=== PATIENT | female | born 1960 | race Caucasian/White ===

== ENCOUNTER 2017-08-11 13:42 | Observation (INO) | payer BC ==
[2017-08-11] VITALS (7 sets, daily range): BP systolic 113–134; BP diastolic 72–80; PULSE 72–121; RESP 16; TEMP 98.1; O2SAT 95–98
[2017-08-11] MEDS ORDERED: BUPR100CR PO (14:46)
[2017-08-11 16:14] LABS: AUTOMATED NEUTROPHIL # 6.8 TH/MM3 (1.8-7.7); BASOPHIL % 0.4 % (0.0-2.0); EOSINOPHIL % 0.1 % (0.0-4.0); HEMATOCRIT 43.2 % (35.0-46.0); HEMOGLOBIN 14.6 GM/DL (11.6-15.3); LYMPH % 7.8 % (9.0-44.0); LYMPHOCYTE # 0.6 TH/MM3 (1.0-4.8); MEAN CELL VOLUME 89.3 FL (80.0-100.0); MEAN CORPUSCULAR HEMOGLOBIN 30.2 PG (27.0-34.0); MEAN CORPUSCULAR HGB CONC 33.9 % (32.0-36.0); MEAN PLATELET VOLUME 10.3 FL (7.0-11.0); MONO % 2.9 % (0.0-8.0); MONOCYTE # 0.2 TH/MM3 (0-0.9); NEUT % 88.8 % (16.0-70.0); PLATELET COUNT 78 TH/MM3 (150-450); RED BLOOD COUNT 4.84 MIL/MM3 (4.00-5.30); WHITE BLOOD COUNT 7.6 TH/MM3 (4.0-11.0)
[2017-08-11] MEDS ORDERED: SODIUM CHLORID 0.9% 500 ML INJ 500 ML IV ONE ×2 (16:15→18:00)
[2017-08-11] MEDS ORDERED: ONDANSETRON HCL 4 MG/2 ML VIAL IV PUSH ONE (16:15)
--- NOTE | 2017-08-11 16:26 | PD ---
HPI Chief Complaint: GI Complaint Time Seen by Provider: 16:05 Travel History International Travel<30 days: No Contact w/Intl Traveler<30days: No Traveled to known affect area: No History of Present Illness HPI Patient states that ever since she stopped taking her depression medication she has been having nausea and vomiting for the past 4 or so days. Patient denies any associated factors such as fever, rash, headache, chest pain, abdominal pain , back pain, diarrhea. No alleviating factors, aggravated by eating or drinking anything. Allergy to penicillins Past medical and surgical history significant for tonsillectomy appendectomy hysterectomy and depression PFS Past Medical History Depression: Yes Tetanus Vaccination: Unknown Influenza Vaccination: No ?: Not Past Surgical History Appendectomy: Yes Hysterectomy: Yes Tonsillectomy: Yes Social History Alcohol Use: No Tobacco Use: No Substance Use: No Allergies-Medications (Allergen,Severity, Reaction): Coded Allergies: Penicillins (Verified Allergy, Unknown, 08/11/17) Reported Meds & Prescriptions Reported Meds & Active Scripts Active Reported Wellbutrin SR 12 HR (Bupropion HCl) 100 Mg Tab Unknown Dose PO Q12HR Review of Systems General / Constitutional: No: Fever Eyes: No: Visual changes HENT: No: Headaches Cardiovascular: No: Chest Pain or Discomfort Respiratory: No: Shortness of Breath Gastrointestinal: Positive: Nausea, Vomiting Genitourinary: No: Dysuria Musculoskeletal: No: Pain Skin: No Rash Neurologic: No: Weakness Psychiatric: No: Depression Endocrine: No: Polydipsia Hematologic/Lymphatic: No: Easy Bruising Physical Exam Narrative GENERAL: SKIN: Warm and dry. HEAD: Atraumatic. Normocephalic. EYES: Pupils equal and round. No scleral icterus. No injection or drainage. ENT: No nasal bleeding or discharge. Mucous membranes pink and moist. NECK: Trachea midline. No JVD. CARDIOVASCULAR: Regular rate and rhythm. RESPIRATORY: No accessory muscle use. Clear to auscultation. Breath sounds equal bilaterally. GASTROINTESTINAL: Abdomen soft, non-tender, nondistended. MUSCULOSKELETAL: Extremities without clubbing, cyanosis, or edema. No obvious deformities. NEUROLOGICAL: Awake and alert. No obvious cranial nerve deficits. Motor grossly within normal limits. Five out of 5 muscle strength in the arms and legs. Normal speech. PSYCHIATRIC: Appropriate mood and affect; insight and judgment normal. Data Data Last Documented VS Vital Signs Date Time Temp Pulse Resp B/P (MAP) Pulse Ox O2 Delivery O2 Flow Rate FiO2 08/11/17 19:03 98 16 133/77 (95) 98 Room Air 08/11/17 17:55 2.00 08/11/17 13:54 98.1 Orders Orders Complete Blood Count With Diff (08/11/17 15:48) Comprehensive Metabolic Panel (08/11/17 15:48) Urinalysis - C+S If Indicated (08/11/17 15:48) Iv Access Insert/Monitor (08/11/17 15:48) Oxygen Administration (08/11/17 15:48) Oximetry (08/11/17 15:48) Lipase (08/11/17 15:48) Ondansetron Inj (Zofran Inj) (08/11/17 16:15) Sodium Chlorid 0.9% 500 Ml Inj (Ns 500 M (08/11/17 16:15) Sodium Chlorid 0.9% 500 Ml Inj (Ns 500 M (08/11/17 18:00) Ct Abd/Pel W/O Iv Contrast (08/11/17 19:19) Admit Order (Ed Use Only) (08/11/17 20:09) Labs Laboratory Tests Test 08/11/17 16:10 08/11/17 18:35 White Blood Count 7.6 TH/MM3 Red Blood Count 4.84 MIL/MM3 Hemoglobin 14.6 GM/DL Hematocrit 43.2 % Mean Corpuscular Volume 89.3 FL Mean Corpuscular Hemoglobin 30.2 PG Mean Corpuscular Hemoglobin Concent 33.9 % Red Cell Distribution Width 14.0 % Platelet Count 78 TH/MM3 Mean Platelet Volume 10.3 FL Neutrophils (%) (Auto) 88.8 % Lymphocytes (%) (Auto) 7.8 % Monocytes (%) (Auto) 2.9 % Eosinophils (%) (Auto) 0.1 % Basophils (%) (Auto) 0.4 % Neutrophils # (Auto) 6.8 TH/MM3 Lymphocytes # (Auto) 0.6 TH/MM3 Monocytes # (Auto) 0.2 TH/MM3 Eosinophils # (Auto) 0.0 TH/MM3 Basophils # (Auto) 0.0 TH/MM3 CBC Comment AUTO DIFF Differential Comment AUTO DIFF CONFIRMED Platelet Estimate LOW Platelet Morphology Comment NORMAL Blood Urea Nitrogen 23 MG/DL Creatinine 1.50 MG/DL Random Glucose 156 MG/DL Total Protein 9.9 GM/DL Albumin 4.7 GM/DL Calcium Level 10.0 MG/DL Alkaline Phosphatase 147 U/L Aspartate Amino Transf (AST/SGOT) 62 U/L Alanine Aminotransferase (ALT/SGPT) 43 U/L Total Bilirubin 2.4 MG/DL Sodium Level 135 MEQ/L Potassium Level 3.7 MEQ/L Chloride Level 93 MEQ/L Carbon Dioxide Level 15.5 MEQ/L Anion Gap 27 MEQ/L Estimat Glomerular Filtration Rate 36 ML/MIN Lipase 157 U/L Urine Collection Type CLEAN CATCH Urine Color YELLOW Urine Turbidity SL CLOUDY Urine pH 5.5 Urine Specific [place] GREATER/EQUAL 1.030 Urine Protein 30 mg/dL Urine Glucose (UA) NEG mg/dL Urine Ketones 80 OR GREATER mg/dL Urine Occult Blood TRACE Urine Nitrite NEG Urine Bilirubin NEG Urine Urobilinogen 0.2 MG/DL Urine Leukocyte Esterase NEG Urine RBC 0-3 /hpf Urine Squamous Epithelial Cells 0-5 /hpf Urine Amorphous Sediment SMALL Urine Hyaline Casts 25-49 /lpf Urine Mucus MOD /lpf Microscopic Urinalysis Comment CULT NOT INDICATED MDM Medical Decision Making Medical Screen Exam Complete: Yes Emergency Medical Condition: Yes Medical Record Reviewed: Yes Differential Diagnosis Gastroenteritis versus hepatitis versus electrolyte abnormality versus adverse effect. Narrative Course CBC shows no leukocytosis no anemia, normal platelet count, and a mild left shift of neutrophilia 89% UA consistent with dehydration but without any evidence of UTI. Metabolic profile shows a decrease bicarb of 15 with an increased anion gap acidosis present. Prerenal azotemia noted with a decreased GFR of 36 glucose was only 156. Normal lipase relatively normal LFTs as well bilirubin was 2.4 alk phos 147 mildly elevated CURRENTLY AWAITING IMAGING.... At 2027 CT read by the radiologist shows gallstone but without any obvious signs of infection such as pericholecystic fluid. Diagnosis Primary Impression: Anion gap acidosis Additional Impressions: Acute prerenal azotemia Cholelithiasis Admitting Information Admitting Physician Requests: Observation Huber Thao MD Aug 11, 2017 16:26
[2017-08-11 16:27] LABS: CHLORIDE 93 MEQ/L (98-107); SODIUM (NA) 135 MEQ/L (136-145)
[2017-08-11 16:31] LABS: ALBUMIN 4.7 GM/DL (3.4-5.0); BICARBONATE 15.5 MEQ/L (21.0-32.0); BLOOD UREA NITROGEN 23 MG/DL (7-18); GLUCOSE,RANDOM 156 MG/DL (74-106)
[2017-08-11 16:34] LABS: ALT (GPT) 43 U/L (10-53); AST (GOT) 62 U/L (15-37); GLOMERULAR FILTRATION RATE 36 ML/MIN (>89)
[2017-08-11 16:36] LABS: TOTAL BILIRUBIN ADULT 2.4 MG/DL (0.2-1.0); TOTAL PROTEIN 9.9 GM/DL (6.4-8.2)
[2017-08-11 16:37] LABS: ALKALINE PHOSPHATASE 147 U/L (45-117)
[2017-08-11 18:53] LABS: BLOOD, URINE TRACE (NEG); GLUCOSE,URINE NEG (NEG); KETONE, URINE 80 OR GREATER mg/dL (NEG); NITRITE,URINE NEG (NEG); PH, URINE 5.5 (5.0-8.5); URINE COLOR YELLOW (YELLW/STRAW); URINE LEUKOCYTE ESTERASE NEG (NEG)
[2017-08-11 18:56] LABS: BILIRUBIN, URINE NEG (NEG)
[2017-08-11 19:02] LABS: MUCUS URINE MOD /lpf (OCC)
[2017-08-11 19:03] LABS: SQUAMOUS EPITHELIAL CELL URINE 0-5 /hpf (0-5)
[2017-08-11 19:05] LABS: AMORPHOUS SEDIMENT, URINE SMALL; RBC, URINE 0-3 /hpf (0-3)
[2017-08-11] MEDS ORDERED: NALOXONE HCL 0.4 MG/ML AMP IV PUSH PRN (20:15)
[2017-08-11] MEDS ORDERED: ACETAMINOPHEN 325 MG TAB PO PRN (20:15)
[2017-08-11] MEDS ORDERED: SODIUM CHLORIDE 0.9% FLUSH 10 ML FLUSH IV FLUSH PRN (20:15)
--- NOTE | 2017-08-11 20:23 | RADRPT ---
EXAM DATE/TIME: 08/11/2017 19:35 [facility] COMPARISON: No previous studies available for comparison. INDICATIONS : Vomiting. Evaluate for colitis versus cholelithiasis. ORAL CONTRAST: No oral contrast ingested. RADIATION DOSE: 15.75 CTDIvol (mGy) MEDICAL HISTORY : None SURGICAL HISTORY : Appendectomy. Hysterectomy. ENCOUNTER: Initial ACUITY: 3 days PAIN SCALE: 0/10 LOCATION: abdomen and pelvis. TECHNIQUE: Volumetric scanning of the abdomen and pelvis was performed. Using automated exposure control and ad justment of the mA and/or kV according to patient size, radiation dose was kept as low as reasonably achievable to obtain optimal diagnostic quality images. DICOM format image data is available electro nically for review and comparison. FINDINGS: LOWER LUNGS: The visualized lower lungs are clear. LIVER: Homogeneous density without lesion for noncontrast technique. There is no dilation of the biliary tr ee. Solitary peripherally calcified gallstone measures 1.3 cm.. SPLEEN: Normal size without lesion. PANCREAS: Within normal limits. KIDNEYS: Normal in size and shape. There is no mass, stone, or hydronephrosis. ADRENAL GLANDS: Within normal limits. VASCULAR: There is no aortic aneurysm. BOWEL/MESENTERY: No dilated loops of small or large bowel. Mild amount of stool in the rectum. ABDOMINAL WALL: Within normal limits. RETROPERITONEUM: There is no lymphadenopathy. BLADDER: No wall thickening or mass. REPRODUCTIVE: Within normal limits. INGUINAL: There is no lymphadenopathy or hernia. MUSCULOSKELETAL: Within normal limits for patient age. CONCLUSION: 1. Solitary calcified gallstone. 2. Mild amount of stool in the rectum. Neel Lawton MD on August 11, 2017 at 20:19 Board Certified Radiologist. This report was verified electronically.
[2017-08-11] MEDS: SODIUM CHLOR 0.9% 1000 ML INJ 1,000 ML IV SCH (20:57)
[2017-08-11] MEDS: SODIUM CHLORIDE 0.9% FLUSH 10 ML FLUSH IV FLUSH SCH (21:00)
[2017-08-11] MEDS: ONDANSETRON HCL 4 MG/2 ML VIAL IVP PRN (22:47)
[2017-08-12] VITALS: BP 121/72; PULSE 98; RESP 20; TEMP 98.8; O2SAT 94
[2017-08-12 04:00] VITALS: BP 115/61; PULSE 100; RESP 18; TEMP 99.2; O2SAT 96
[2017-08-12] MEDS: SODIUM CHLOR 0.9% 1000 ML INJ 1,000 ML IV SCH (05:54)
[2017-08-12 06:56] LABS: BASOPHIL % 0.3 % (0.0-2.0); EOSINOPHIL % 0.1 % (0.0-4.0); HEMATOCRIT 35.3 % (35.0-46.0); LYMPH % 25.5 % (9.0-44.0); LYMPHOCYTE # 1.1 TH/MM3 (1.0-4.8); MEAN CELL VOLUME 88.6 FL (80.0-100.0); MEAN CORPUSCULAR HEMOGLOBIN 30.4 PG (27.0-34.0); MEAN CORPUSCULAR HGB CONC 34.3 % (32.0-36.0); MEAN PLATELET VOLUME 10.7 FL (7.0-11.0); MONO % 5.7 % (0.0-8.0); MONOCYTE # 0.3 TH/MM3 (0-0.9); NEUT % 68.4 % (16.0-70.0); RED BLOOD COUNT 3.99 MIL/MM3 (4.00-5.30); RED CELL DISTRIBUTION WIDTH 13.6 % (11.6-17.2); WHITE BLOOD COUNT 4.4 TH/MM3 (4.0-11.0)
[2017-08-12 07:01] LABS: HEMOGLOBIN 12.1 GM/DL (11.6-15.3); PLATELET COUNT 46 TH/MM3 (150-450)
[2017-08-12 07:41] LABS: ALBUMIN 3.6 GM/DL (3.4-5.0); ALKALINE PHOSPHATASE 107 U/L (45-117); ALT (GPT) 32 U/L (10-53); AST (GOT) 47 U/L (15-37); BICARBONATE 24.2 MEQ/L (21.0-32.0); BLOOD UREA NITROGEN 18 MG/DL (7-18); CALCIUM 9.1 MG/DL (8.5-10.1); CHLORIDE 101 MEQ/L (98-107); GLOMERULAR FILTRATION RATE 57 ML/MIN (>89); GLUCOSE,RANDOM 109 MG/DL (74-106); SODIUM (NA) 137 MEQ/L (136-145); TOTAL BILIRUBIN ADULT 1.4 MG/DL (0.2-1.0); TOTAL PROTEIN 7.5 GM/DL (6.4-8.2)
[2017-08-12 08:00] VITALS: BP 131/82; PULSE 92; RESP 16; TEMP 97.9; O2SAT 98
[2017-08-12] MEDS ORDERED: POTASSIUM CHLORIDE 10 MEQ CONTROLLED RELEASE TAB PO ONE ×2 (08:00→14:30)
--- NOTE | 2017-08-12 09:44 | HHI.HP ---
HPI Service [facility] Primary Care Physician No Primary Care Physician Admission Diagnosis PRERENAL AZOTEMIA, ANION GAP ACIDOSIS Diagnoses: (1) Acute prerenal azotemia Chief Complaint: Nausea and vomiting Travel History International Travel<30 Days: No Contact w/Intl Traveler <30 Da: No Traveled to Known Affected Are: No History of Present Illness This is a pleasant 57-year-old female patient within her medical history of depression who presented to the ED with complaints of nausea and vomiting for 5 days. Patient states that she had recently started taking Wellbutrin prescribed from her PCP and over the course of 5 days she began hallucinating therefore she stopped the medicine since stopping her Wellbutrin she has complained of nausea and vomiting with everything she eats. Has been unable to tolerate p.o. intake. She also complains of associated headache. Denies any recent fevers, chills, cough, headache, chest pain, abdominal pain, diarrhea or dysuria. Patient does admit to history of alcoholism, states she quit alcohol 2 months ago. Has intermittently been in AA and has been attempting to quit alcohol over the years. It should be noted that patient is intermittently tearful regarding situation when speaking about alcohol use and depression. Patient denies any current suicidal ideation or plan. Does state that she has adequate social support in the outpatient setting. Review of Systems Constitutional: DENIES: Fatigue, Fever, Chills Eyes: DENIES: Blurred vision, Diplopia Respiratory: DENIES: Cough, Shortness of breath Cardiovascular: DENIES: Chest pain Gastrointestinal: COMPLAINS OF: Nausea, Vomiting, DENIES: Abdominal pain, Black stools, Bloody stools, Constipation, Diarrhea Neurologic: DENIES: Abnormal gait Psychiatric: DENIES: Anxiety Except as stated in HPI: all other systems reviewed are Neg Past Family Social History Past Medical History Depression History of alcoholism Past Surgical History Appendectomy Hysterectomy Tonsillectomy Reported Medications Denies any home medications. Allergies: Coded Allergies: Penicillins (Verified Allergy, Unknown, 08/11/17) Active Ordered Medications Current Medications Medications (Trade) Dose Ordered Sig/Tara Route Start Time Stop Time Status Last Admin (NS Flush) 2 ml UNSCH PRN IV FLUSH 08/11/17 20:15 (NS Flush) 2 ml BID IV FLUSH 08/11/17 21:00 08/12/17 11:25 (Tylenol) 650 mg Q4H PRN PO 08/11/17 20:15 (Zofran Inj) 4 mg Q6H PRN IVP 08/11/17 20:15 08/11/17 22:47 (Narcan Inj) 0.4 mg UNSCH PRN IV PUSH 08/11/17 20:15 Potassium Chloride/Sodium Chloride 1,000 ml @ 100 mls/hr Q10H IV 08/12/17 08:00 08/12/17 11:40 Family History Denies any significant family medical history. Social History Denies any current tobacco use. Denies any alcohol use, states she quit 2 months ago. Denies any illicit drug use. Physical Exam Vital Signs Vital Signs Date Time Temp Pulse Resp B/P (MAP) Pulse Ox O2 Delivery O2 Flow Rate FiO2 08/12/17 08:00 97.9 92 16 131/82 (98) 98 08/12/17 04:00 99.2 100 18 115/61 (79) 96 08/12/17 00:00 98.8 98 20 121/72 (88) 94 08/11/17 22:18 98 16 113/72 (86) 96 08/11/17 21:03 98 16 114/80 (91) 95 Room Air 08/11/17 19:03 16 08/11/17 19:03 98 16 133/77 (95) 98 Room Air 08/11/17 17:55 98 16 118/77 (91) 97 Nasal Cannula 2.00 08/11/17 16:59 Nasal Cannula 2.00 08/11/17 16:40 72 16 126/74 (91) 97 Nasal Cannula 2.00 08/11/17 16:00 97 Nasal Cannula 2.00 08/11/17 13:54 98.1 121 16 134/77 (96) 98 Physical Exam GENERAL: Well-developed, well-nourished patient in NAD. Somewhat tearful. SKIN: Warm and dry. No rash. HEAD: Normocephalic. Atraumatic. EYES: Pupils equal and round. No scleral icterus. No injection or drainage. ENT: No nasal bleeding or discharge. Mucous membranes pink and moist. NECK: Supple. Trachea midline. CARDIOVASCULAR: Regular rate and rhythm. S1, S2 noted. No murmur appreciated. RESPIRATORY: No accessory muscle use. Clear to auscultation. Breath sounds equal bilaterally. GASTROINTESTINAL: Abdomen soft, non-tender, nondistended. Normoactive bowel sounds x4. MUSCULOSKELETAL: No obvious deformities. Extremities without clubbing, cyanosis , or edema. NEUROLOGICAL: Awake and alert. No obvious cranial nerve deficits. Motor grossly within normal limits. 5/5 muscle strength in bilateral upper and lower extremities. Normal speech. PSYCHIATRIC: Appropriate mood and affect; insight and judgment normal. Laboratory Laboratory Tests Test 08/11/17 16:10 08/11/17 18:35 08/12/17 05:55 White Blood Count 7.6 4.4 Red Blood Count 4.84 3.99 Hemoglobin 14.6 12.1 Hematocrit 43.2 35.3 Mean Corpuscular Volume 89.3 88.6 Mean Corpuscular Hemoglobin 30.2 30.4 Mean Corpuscular Hemoglobin Concent 33.9 34.3 Red Cell Distribution Width 14.0 13.6 Platelet Count 78 46 Mean Platelet Volume 10.3 10.7 Neutrophils (%) (Auto) 88.8 68.4 Lymphocytes (%) (Auto) 7.8 25.5 Monocytes (%) (Auto) 2.9 5.7 Eosinophils (%) (Auto) 0.1 0.1 Basophils (%) (Auto) 0.4 0.3 Neutrophils # (Auto) 6.8 3.0 Lymphocytes # (Auto) 0.6 1.1 Monocytes # (Auto) 0.2 0.3 Eosinophils # (Auto) 0.0 0.0 Basophils # (Auto) 0.0 0.0 CBC Comment AUTO DIFF AUTO DIFF Differential Comment AUTO DIFF CONFIRMED AUTO DIFF CONFIRMED Platelet Estimate LOW LOW Platelet Morphology Comment NORMAL NORMAL Blood Urea Nitrogen 23 18 Creatinine 1.50 1.00 Random Glucose 156 109 Total Protein 9.9 7.5 Albumin 4.7 3.6 Calcium Level 10.0 9.1 Alkaline Phosphatase 147 107 Aspartate Amino Transf (AST/SGOT) 62 47 Alanine Aminotransferase (ALT/SGPT) 43 32 Total Bilirubin 2.4 1.4 Sodium Level 135 137 Potassium Level 3.7 2.9 Chloride Level 93 101 Carbon Dioxide Level 15.5 24.2 Anion Gap 27 12 Estimat Glomerular Filtration Rate 36 57 Lipase 157 Urine Collection Type CLEAN CATCH Urine Color YELLOW Urine Turbidity SL CLOUDY Urine pH 5.5 Urine Specific [place] GREATER/EQUAL 1.030 Urine Protein 30 Urine Glucose (UA) NEG Urine Ketones 80 OR GREATER Urine Occult Blood TRACE Urine Nitrite NEG Urine Bilirubin NEG Urine Urobilinogen 0.2 Urine Leukocyte Esterase NEG Urine RBC 0-3 Urine Squamous Epithelial Cells 0-5 Urine Amorphous Sediment SMALL Urine Hyaline Casts 25-49 Urine Mucus MOD Microscopic Urinalysis Comment CULT NOT INDICATED Magnesium Level 1.9 Result Diagram: 08/12/17 0555 08/12/17 0555 Imaging Last Impressions Abdomen/Pelvis CT 08/11/171918 Signed Impressions: Service Date/Time: Friday, August 11, 2017 19:35 - CONCLUSION: 1. Solitary calcified gallstone. 2. Mild amount of stool in the rectum. Neel Lawton MD Septic Shock Reassessment Septic shock perfusion: reassessment completed Caprini VTE Risk Assessment Caprini VTE Risk Assessment: No/Low Risk (score <= 1) Caprini Risk Assessment Model Point Value = 1 Point Value = 2 Point Value = 3 Point Value = 5 Age 41-60 Minor surgery BMI > 25 kg/m2 Swollen legs Varicose veins or History of unexplained or recurrent spontaneous Oral contraceptives or hormone replacement Sepsis (< 1 month) Serious lung disease, including pneumonia (< 1 month) Abnormal pulmonary function Acute myocardial infarction Congestive heart failure (< 1 month) History of inflammatory bowel disease Medical patient at bed rest Age 61-74 Arthroscopic surgery Major open surgery (> 45 min) Laparoscopic surgery (> 45 min) Malignancy Confined to bed (> 72 hours) Immobilizing plaster cast Central venous access Age >= 75 History of VTE Family history of VTE Factor V Leiden Prothrombin [id number] Lupus anticoagulant Anticardiolipin antibodies Elevated serum homocysteine Heparin-induced thrombocytopenia Other congenital or acquired thrombophilia Stroke (< 1 month) Elective arthroplasty Hip, pelvis, or leg fracture Acute spinal cord injury (< 1 month) Prophylaxis Regimen Total Risk Factor Score Risk Level Prophylaxis Regimen 0-1 Low Early ambulation 2 Moderate Order ONE of the following: *Sequential Compression Device (SCD) *Heparin 5000 units SQ BID 3-4 Higher Order ONE of the following medications: *Heparin 5000 units SQ TID *Enoxaparin/Lovenox 40 mg SQ daily (WT < 150 kg, CrCl > 30 mL/min) *Enoxaparin/Lovenox 30 mg SQ daily (WT < 150 kg, CrCl > 10-29 mL/min) *Enoxaparin/Lovenox 30 mg SQ BID (WT < 150 kg, CrCl > 30 mL/min) AND/OR *Sequential Compression Device (SCD) 5 or more Highest Order ONE of the following medications: *Heparin 5000 units SQ TID (Preferred with Epidurals) *Enoxaparin/Lovenox 40 mg SQ daily (WT < 150 kg, CrCl > 30 mL/min) *Enoxaparin/Lovenox 30 mg SQ daily (WT < 150 kg, CrCl > 10-29 mL/min) *Enoxaparin/Lovenox 30 mg SQ BID (WT < 150 kg, CrCl > 30 mL/min) AND *Sequential Compression Device (SCD) Assessment and Plan Problem List: (1) Nausea and vomiting ICD Code: R11.2 - Nausea with vomiting, unspecified (2) Acute prerenal azotemia ICD Code: R79.89 - Other specified abnormal findings of blood chemistry Status: Acute Assessment and Plan This is a pleasant 57-year-old female patient within her medical history of depression who presented to the ED with complaints of nausea and vomiting for 5 days.3 Nausea and vomiting suspect secondary to medication side effect vs cholelithiasis Thrombocytopenia with suspect secondary to chronic alcohol abuse Transaminase suspect secondary to above Patient complaint of nausea and vomiting x 5 days after stopping her Wellbutrin. Abdominal/pelvis CT reviewed showing solitary calcified gallstone. Mild amount of stool in the rectum. Patient has been afebrile. CBC reviewed, Does deny any alcohol consumption since June. Platelets 78-->46 status post IV hydration. Patient states her platelets are always this low. No presence of bleeding. H&H stable. Will continue to monitor and check labs in AM. Control nausea, Zofran available PRN. Supportive care. Hypokalemia suspect secondary to vomiting Potassium 2.9. Status post replacement. Continue IVF with 20K. Continue to monitor BMP. Magnesium 1.9. Acute kidney injury suspect secondary to dehydration/vomiting Creatinine 1.5 on presentation, now 1.0. Will continue IVF for now. Continue to monitor BMP. Depression: Wellbutrin has been stopped. Patient denies wanting any further antidepressant at this time. Denies any suicidal ideation or plan. Supportive care. DVT prophylaxis: SCDs. Ambulation. Simi Arshad Aug 12, 2017 09:44
[2017-08-12] MEDS: SODIUM CHLORIDE 0.9% FLUSH 10 ML FLUSH IV FLUSH SCH ×2 (11:25→21:00)
[2017-08-12] MEDS: NS + KCL 20 MEQ INJ 1,000 ML IV SCH ×2 (11:40→18:00)
[2017-08-12 12:00] VITALS: BP 120/70; PULSE 89; RESP 16; TEMP 98.8; O2SAT 96
[2017-08-12 16:00] VITALS: BP 121/75; PULSE 85; RESP 16; TEMP 97.2; O2SAT 94
[2017-08-12 20:00] VITALS: BP 125/74; PULSE 87; RESP 20; TEMP 98.3; O2SAT 94
[2017-08-12] MEDS: POTASSIUM CHLORIDE INJ 20 MEQ in SODIUM CHLOR 0.9% 1000 ML INJ 1,000 ML IV SCH (21:56)
[2017-08-12] MEDS: ONDANSETRON HCL 4 MG/2 ML VIAL IVP PRN (22:02)
[2017-08-13] VITALS: BP 124/79; PULSE 92; RESP 20; TEMP 98; O2SAT 94
[2017-08-13 07:34] LABS: AUTOMATED NEUTROPHIL # 1.7 TH/MM3 (1.8-7.7); BASOPHIL % 0.6 % (0.0-2.0); EOSINOPHIL % 0.5 % (0.0-4.0); HEMATOCRIT 31.8 % (35.0-46.0); HEMOGLOBIN 11.3 GM/DL (11.6-15.3); LYMPH % 34.8 % (9.0-44.0); MEAN CORPUSCULAR HEMOGLOBIN 31.5 PG (27.0-34.0); MEAN CORPUSCULAR HGB CONC 35.4 % (32.0-36.0); MEAN PLATELET VOLUME 9.9 FL (7.0-11.0); MONO % 5.6 % (0.0-8.0); MONOCYTE # 0.2 TH/MM3 (0-0.9); NEUT % 58.5 % (16.0-70.0); PLATELET COUNT 30 TH/MM3 (150-450); RED BLOOD COUNT 3.57 MIL/MM3 (4.00-5.30); RED CELL DISTRIBUTION WIDTH 14.4 % (11.6-17.2); WHITE BLOOD COUNT 2.9 TH/MM3 (4.0-11.0)
[2017-08-13] MEDS: POTASSIUM CHLORIDE INJ 20 MEQ in SODIUM CHLOR 0.9% 1000 ML INJ 1,000 ML IV SCH (07:51)
[2017-08-13 07:52] LABS: CHLORIDE 107 MEQ/L (98-107); SODIUM (NA) 141 MEQ/L (136-145)
[2017-08-13 07:56] LABS: ALBUMIN 3.1 GM/DL (3.4-5.0); BICARBONATE 27.9 MEQ/L (21.0-32.0); CALCIUM 8.5 MG/DL (8.5-10.1); GLUCOSE,RANDOM 117 MG/DL (74-106)
[2017-08-13 08:00] VITALS: BP 144/84; PULSE 97; RESP 20; TEMP 97.7; O2SAT 94
[2017-08-13 08:40] LABS: ALKALINE PHOSPHATASE 93 U/L (45-117); ALT (GPT) 37 U/L (10-53); AST (GOT) 55 U/L (15-37); GLOMERULAR FILTRATION RATE 105 ML/MIN (>89); TOTAL BILIRUBIN ADULT 1.4 MG/DL (0.2-1.0); TOTAL PROTEIN 6.6 GM/DL (6.4-8.2)
[2017-08-13 08:44] LABS: BLOOD UREA NITROGEN 5 MG/DL (7-18)
[2017-08-13 08:45] LABS: CREATININE 0.59 MG/DL (0.50-1.00)
[2017-08-13] MEDS: SODIUM CHLORIDE 0.9% FLUSH 10 ML FLUSH IV FLUSH SCH (09:00)
--- NOTE | 2017-08-13 09:12 | HHI.PR ---
Subjective Remarks Follow up nausea and vomiting and hypokalemia. Patient seen and examined, sitting up in bed awake and alert eating breakfast. Denies any further n/v, all symptoms have resolved. Patient tolerating PO intake. Denies any pain. Vitals are stable. K 3.1 today. Will allow to eat and replace. DC home today after replacement. Patient is more positive today, not tearful. States she is feeling well and much improved mentally. She is happy to be off antidepressants and does not want to start another supplement while in the hospital, will follow up with the PCP. Objective Vitals Vital Signs Date Time Temp Pulse Resp B/P (MAP) Pulse Ox O2 Delivery O2 Flow Rate FiO2 08/13/17 08:00 97.7 97 20 144/84 (104) 94 08/13/17 00:00 98.0 92 20 124/79 (94) 94 08/12/17 20:00 98.3 87 20 125/74 (91) 94 08/12/17 16:00 97.2 85 16 121/75 (90) 94 08/12/17 12:00 98.8 89 16 120/70 (87) 96 I/O 08/12/17 08/12/17 08/12/17 08/13/17 08/13/17 08/13/17 07:00 15:00 23:00 07:00 15:00 23:00 Intake Total 720 ml 480 ml 660 ml 480 ml Balance 720 ml 480 ml 660 ml 480 ml Intake Oral 720 ml 480 ml 660 ml 480 ml # Voids 2 1 2 # Bowel Movements 0 1 Result Diagram: 08/13/17 0640 08/13/17 0640 Imaging Last Impressions Abdomen/Pelvis CT 08/11/171918 Signed Impressions: Service Date/Time: Friday, August 11, 2017 19:35 - CONCLUSION: 1. Solitary calcified gallstone. 2. Mild amount of stool in the rectum. Neel Lawton MD Objective Remarks GENERAL: Well-developed, well-nourished patient in NAD. SKIN: Warm and dry. No rash. HEAD: Normocephalic. Atraumatic. EYES: Pupils equal and round. No scleral icterus. No injection or drainage. ENT: No nasal bleeding or discharge. Mucous membranes pink and moist. NECK: Supple. Trachea midline. CARDIOVASCULAR: Regular rate and rhythm. S1, S2 noted. No murmur appreciated. RESPIRATORY: No accessory muscle use. Clear to auscultation. Breath sounds equal bilaterally. GASTROINTESTINAL: Abdomen soft, non-tender, nondistended. Normoactive bowel sounds x4. MUSCULOSKELETAL: No obvious deformities. Extremities without clubbing, cyanosis , or edema. NEUROLOGICAL: Awake and alert. No obvious cranial nerve deficits. Motor grossly within normal limits. 5/5 muscle strength in bilateral upper and lower extremities. Normal speech. PSYCHIATRIC: Appropriate mood and affect; insight and judgment normal. A/P Problem List: (1) Nausea and vomiting ICD Code: R11.2 - Nausea with vomiting, unspecified (2) Acute prerenal azotemia ICD Code: R79.89 - Other specified abnormal findings of blood chemistry Status: Acute Assessment and Plan This is a pleasant 57-year-old female patient within her medical history of depression who presented to the ED with complaints of nausea and vomiting for 5 days.3 Nausea and vomiting suspect secondary to medication side effect vs cholelithiasis Thrombocytopenia with suspect secondary to chronic alcohol abuse Transaminase suspect secondary to above Patient complaint of nausea and vomiting x 5 days after stopping her Wellbutrin. Symptoms resolved now. Abdominal/pelvis CT reviewed showing solitary calcified gallstone. Mild amount of stool in the rectum. Patient has been afebrile. CBC reviewed continued thrombocytopenia. Does deny any alcohol consumption since June. Status post IV hydration. Patient states her platelets are always low even in the 30Ks. No presence of bleeding. H&H stable. Encouraged to follow up with GI in the outpatient setting, patient agreeable within the week. All symptoms resolved. Patient states she has quit alcohol and admits to adequate social support. Encouraged cessation. Hypokalemia suspect secondary to vomiting Potassium 3.1. Status post replacement. Magnesium stable. Patient eating now and given supplement with anticipation of potassium improving, will encourage patient to follow up with PCP for redraw of BMP in a week. Patient agreeable. Acute kidney injury suspect secondary to dehydration/vomiting. Resolved. Depression: Wellbutrin has been stopped. Patient denies wanting any further antidepressant at this time. Denies any suicidal ideation or plan. Supportive care. DVT prophylaxis: SCDs. Ambulation. Simi Arshad Aug 13, 2017 09:12
--- NOTE | 2017-08-13 09:13 | HHI.DCPOC ---
Discharge Care Plan Diagnosis: (1) Hypokalemia (2) Acute prerenal azotemia (3) Nausea and vomiting Goals to Promote Your Health * To prevent worsening of your condition and complications * To maintain your health at the optimal level Directions to Meet Your Goals Take your medications as prescribed Follow your dietary instruction Follow activity as directed Keep your appointments as scheduled Take your immunizations and boosters as scheduled If your symptoms worsen call your PCP, if no PCP go to Urgent Care Center or Emergency Room Smoking is Dangerous to Your Health. Avoid second hand smoke Call the 24-hour hour crisis hotline for domestic abuse at Simi Arshad Aug 13, 2017 09:13
[2017-08-13] MEDS ORDERED: POTASSIUM CHLORIDE 10 MEQ CONTROLLED RELEASE TAB PO ONE (09:15)
== END 2017-08-13 10:39 | disposition home or self-care (01) ==
LOC: PHED 13:42 → PHEDA 20:12 → PH3A 22:20
PROVIDERS: ADMIT Hospitalist; ATTEND Hospitalist
DX: R11.2 Nausea with vomiting, unspecified (principal); R79.89 Other specified abnormal findings of blood chemistry; D69.6 Thrombocytopenia, unspecified; K80.20 Calculus of gallbladder without cholecystitis without obstruction; E87.6 Hypokalemia; N17.9 Acute kidney failure, unspecified; E87.2 Acidosis; F32.9 Major depressive disorder, single episode, unspecified
CPT/HCPCS: 74176; 80053; 81001; 83690; 83735; 84132; 85025; 96361; 96365; 96366; 96375; 96376; 99285; G0378; J2405; J3480; J7030; J7040

== ENCOUNTER 2018-05-27 15:21 | Inpatient (IN) ==
[2018-05-27] MEDS ORDERED: Sod Chloride 0.9% Inj 1,000 ML IV.SIG ONE (15:53)
--- NOTE | 2018-05-27 15:56 | ED ---
HPI General Chief complaint: Psychiatric Symptoms Stated complaint: Psych Eval/VCSO Time Seen by Provider: 05/27/18 15:53 History of Present Illness HPI narrative: 57-year-old female is brought to the emergency department under Olguin act for suicidal ideations. The patient states that she has a history of depression and alcohol abuse, states she drinks alcohol daily. States that over the last month she has had worsening depression and thoughts of wanting to hurt herself. Denies any attempts to harm herself or any ingestion of substances in an attempt to harm herself. She states that over the past 3 days she has had nausea and vomiting and that today she started having lower abdominal pain. Describes it as a cramping pain, states that she thinks she is having abdominal pain because she is dehydrated and she is been throwing up. Denies any diarrhea, fever, chills, chest pain, shortness of breath, black or bloody stool. Prior abdominal surgeries include appendectomy and hysterectomy. No other complaints. Related Data Home Medications Medication Instructions Recorded Confirmed Unable to Obtain Home Meds 05/27/18 05/27/18 Allergies Allergy/AdvReac Type Severity Reaction Status Date / Time Penicillins Allergy Unknown Anaphylaxis Verified 05/27/18 15:35 amoxicillin Allergy Anaphylaxis Verified 05/27/18 15:58 codeine Allergy Anaphylaxis Verified 05/27/18 15:58 Review of Systems ROS: all other systems reviewed are negative PMFSH Medical History Medical History Depression (Acute) History of hysterectomy (Acute) Surgical History Surgical History History of appendectomy (Acute) History of tonsillectomy (Acute) Social History Social History Substance History: Active Abuse Second Hand Smoke Exposure: No Smoking Status: Never smoker How Often Do You Have a Drink Containing Alcohol: 4 or more times a week Recent Travel in [facility] within the Last 8 Weeks: No Recent Out of Country Travel within the Last 8 Weeks: No Immunization History Tetanus Immunization: Unsure Exam Narrative Exam Narrative: GENERAL: Well-nourished and well-developed 57-year-old female crying and complaining of abdominal pain. SKIN: Warm and dry. HEAD: Normocephalic and atraumatic. EYES: No injection, drainage, or hyphema noted. PERRLA. EOMI. ENT: No nasal drainage noted. Oropharynx is clear. NECK: Supple and the trachea is midline. CARDIOVASCULAR: Regular rate and rhythm. RESPIRATORY: Breath sounds are equal bilaterally with no accessory muscle use, wheezing, rhonchi, or crackles. GASTROINTESTINAL: Mild generalized tenderness to palpation. Abdomen is soft and nondistended. MUSCULOSKELETAL: No obvious deformities, swelling, cyanosis, or ecchymosis is present throughout the upper and lower extremities. Patient has full range of motion without any signs of neurovascular compromise. Distal pulses are 2+ throughout. NEUROLOGICAL: Awake, alert, and oriented. Normal speech and gait. Cranial nerves are grossly intact. Course Initial Documented Vital Signs Temperature 97.7 F 05/27/18 15:37 Pulse Rate 103 H 05/27/18 15:37 Respiratory Rate 22 05/27/18 15:37 Blood Pressure 138/84 05/27/18 15:37 Pulse Oximetry 97 05/27/18 15:37 Last Documented Vital Signs Temperature 98.5 F 05/28/18 17:51 Pulse Rate 91 H 05/28/18 17:51 Respiratory Rate 17 05/28/18 17:51 Blood Pressure 143/94 H 05/28/18 17:51 Pulse Oximetry 95 05/28/18 06:28 Medical Decision Making KAREL Attestation KAREL supervised visit: Yes Attestation: I, Dr. Olmos, have reviewed the advance practice practitioner' s documentation and am in agreement, met with the patient face to face, made the diagnosis, and the medical decision making was done by me. *My assessment and Findings: The patient is a 57-year-old female who was placed under Olguin act and was signed out by the mid-level provider. The patient's alcohol level was elevated, lipase, potassium, and sodium are within normal limits, LFTs are mildly elevated, most likely secondary to alcohol abuse. LFTs are mildly elevated with AST greater than ALT, slightly higher than in past with slightly elevated alkaline phosphatase. CT of the abdomen and pelvis reveals cholelithiasis but no inflammatory changes of the gallbladder noted. The patient is afebrile. The patient is medically cleared to be evaluated by psychiatry. Disposition as per psych. [facility] Narrative Medical decision making narrative: Patient presents under a Olguin act. Physical examination and vital signs are essentially unremarkable. Patient is complaining of nausea, vomiting and abdominal pain. IV access is obtained, labs been drawn and sent. Patient is placed on cardiac telemetry and pulse oximetry monitoring. Patient administered Zofran and fluids. CT of the abdomen and pelvis has been ordered and is pending. Patient seen in the ambulance hallway and care to be transferred to medical pod. Psych screen has been ordered. Patient signed out to Dr. Olmos who will assume care of the patient and disposition. Medical Screen Exam Complete: Yes Emergency Medical Condition: Yes Differential Diagnosis Differential Diagnosis: Differential: Depression versus adjustment reaction versus anxiety versus PTSD versus psychosis NOS versus mood disorder NOS versus substance induced mood disorder versus ODD versus adjustment reaction versus schizophrenia versus bipolar disorder versus schizoaffective versus electrolyte abnormality versus dementia versus malingering. Lab Data Lab results reviewed: Yes I reviewed the patient's lab results. Result diagrams: 05/27/18 19:20 05/28/18 06:38 Lab Results 05/27/18 05/27/18 05/27/18 Range/Units 19:20 19:20 19:20 WBC 5.1 (4.0-11.0) th/mm3 RBC 4.15 (4.00-5.30) mil/mm3 Hgb 13.6 (11.6-15.3) gm/dL Hct 39.2 (35.0-46.0) % MCV 94.5 (80.0-100.0) fL MCH 32.7 (27.0-34.0) pg MCHC 34.6 (32.0-36.0) % RDW 15.4 (11.6-17.2) % Plt Count 109 L (150-450) th/mm3 MPV 10.3 (7.0-11.0) fL Neut % (Auto) 52.0 (16.0-70.0) % Lymph % (Auto) 41.9 (9.0-44.0) % [place] % (Auto) 5.0 (0.0-8.0) % Eos % (Auto) 0.3 (0.0-4.0) % Baso % (Auto) 0.8 (0.0-2.0) % Neut # (Auto) 2.7 (1.8-7.7) th/mm3 Lymph # (Auto) 2.1 (1.0-4.8) th/mm3 Henderson # (Auto) 0.3 (0.0-0.9) th/mm3 Eos # (Auto) 0.0 (0.0-0.4) th/mm3 Baso # (Auto) 0.0 (0.0-0.2) th/mm3 WBC Differential . Differential Comment Auto diff final Sodium 135 L (136-145) meq/L Potassium 4.4 (3.5-5.1) meq/L Chloride 98 (98-107) meq/L Carbon Dioxide 23.4 (21.0-32.0) meq/L Anion Gap 14 (5-15) meq/L BUN 8 (7-18) mg/dL Creatinine 0.82 (0.50-1.00) mg/dL Estimated GFR 72 L (>89) mL/min Random Glucose 75 (74-106) mg/dL Hemoglobin A1c (4.3-6.0) % Calcium 8.9 (8.5-10.1) mg/dL Magnesium 2.0 (1.5-2.5) mg/dL Total Bilirubin 0.9 (0.2-1.0) mg/dL AST 114 H (15-37) U/L ALT 79 H (10-53) U/L Alkaline Phosphatase 139 H (45-117) U/L Total Protein 8.4 H (6.4-8.2) g/dL Albumin 4.1 (3.4-5.0) g/dL Triglycerides (42-150) mg/dL Cholesterol (120-200) mg/dL LDL Cholesterol, Calc (0-99) mg/dL HDL Cholesterol (40.0-60.0) mg/dL Cholesterol/HDL Ratio Ratio Lipase 81 (73-393) U/L TSH 2.040 Cancelled (0.358-3.740) uIU/mL Urine Color (Yellw/Straw) Urine Clarity (Clear) Urine pH (5.0-8.5) Ur Specific [place] (1.002-1.035) Urine Protein (Neg-Trace) mg/dL Urine Glucose (UA) (Negative) mg/dL Urine Ketones (Negative) mg/dL Urine Occult Blood (Negative) Urine Nitrate (Negative) Urine Bilirubin (Negative) Urine Urobilinogen (Less than 2) mg/dL Ur Leukocyte Esterase (Negative) Urine RBC (0-3) /hpf Urine WBC (0-5) /hpf Ur Squamous Epith Cells (0-5) /hpf Urine Mucus (Occasional) /lpf Micro UA Comment Ur Microscopic Review Urine Culture Comments Urine Opiates Screen (Neg) Ur Barbiturates Screen (Neg) Ur Amphetamines Screen (Neg) U Benzodiazepines Scrn (Neg) Urine Cocaine Screen (Neg) U Cannabinoids Screen (Neg) Serum Alcohol 135 H (0-5) mg/dL 05/27/18 05/27/18 05/27/18 Range/Units 19:20 22:23 22:23 WBC (4.0-11.0) th/mm3 RBC (4.00-5.30) mil/mm3 Hgb (11.6-15.3) gm/dL Hct (35.0-46.0) % MCV (80.0-100.0) fL MCH (27.0-34.0) pg MCHC (32.0-36.0) % RDW (11.6-17.2) % Plt Count (150-450) th/mm3 MPV (7.0-11.0) fL Neut % (Auto) (16.0-70.0) % Lymph % (Auto) (9.0-44.0) % Henderson % (Auto) (0.0-8.0) % Eos % (Auto) (0.0-4.0) % Baso % (Auto) (0.0-2.0) % Neut # (Auto) (1.8-7.7) th/mm3 Lymph # (Auto) (1.0-4.8) th/mm3 Henderson # (Auto) (0.0-0.9) th/mm3 Eos # (Auto) (0.0-0.4) th/mm3 Baso # (Auto) (0.0-0.2) th/mm3 WBC Differential Differential Comment Sodium (136-145) meq/L Potassium (3.5-5.1) meq/L Chloride (98-107) meq/L Carbon Dioxide (21.0-32.0) meq/L Anion Gap (5-15) meq/L BUN (7-18) mg/dL Creatinine (0.50-1.00) mg/dL Estimated GFR (>89) mL/min Random Glucose (74-106) mg/dL Hemoglobin A1c (4.3-6.0) % Calcium (8.5-10.1) mg/dL Magnesium (1.5-2.5) mg/dL Total Bilirubin (0.2-1.0) mg/dL AST (15-37) U/L ALT (10-53) U/L Alkaline Phosphatase (45-117) U/L Total Protein (6.4-8.2) g/dL Albumin (3.4-5.0) g/dL Triglycerides (42-150) mg/dL Cholesterol (120-200) mg/dL LDL Cholesterol, Calc (0-99) mg/dL HDL Cholesterol (40.0-60.0) mg/dL Cholesterol/HDL Ratio Ratio Lipase (73-393) U/L TSH (0.358-3.740) uIU/mL Urine Color Yellow (Yellw/Straw) Urine Clarity Hazy H (Clear) Urine pH 6.0 (5.0-8.5) Ur Specific [place] Greater than 1.060 H (1.002-1.035) Urine Protein 30 H (Neg-Trace) mg/dL Urine Glucose (UA) Negative (Negative) mg/dL Urine Ketones 20 (Negative) mg/dL Urine Occult Blood Negative (Negative) Urine Nitrate Negative (Negative) Urine Bilirubin Negative (Negative) Urine Urobilinogen 4 or greater (Less than 2) mg/dL Ur Leukocyte Esterase Negative (Negative) Urine RBC 2 (0-3) /hpf Urine WBC Less than 1 (0-5) /hpf Ur Squamous Epith Cells 4 (0-5) /hpf Urine Mucus Few H (Occasional) /lpf Micro UA Comment Culture not ind Ur Microscopic Review Not Reportable Urine Culture Comments Culture not ind Urine Opiates Screen Neg (Neg) Ur Barbiturates Screen Neg (Neg) Ur Amphetamines Screen Neg (Neg) U Benzodiazepines Scrn Neg (Neg) Urine Cocaine Screen Neg (Neg) U Cannabinoids Screen Neg (Neg) Serum Alcohol Cancelled (0-5) mg/dL 05/28/18 05/28/18 Range/Units 06:38 06:38 WBC (4.0-11.0) th/mm3 RBC (4.00-5.30) mil/mm3 Hgb (11.6-15.3) gm/dL Hct (35.0-46.0) % MCV (80.0-100.0) fL MCH (27.0-34.0) pg MCHC (32.0-36.0) % RDW (11.6-17.2) % Plt Count (150-450) th/mm3 MPV (7.0-11.0) fL Neut % (Auto) (16.0-70.0) % Lymph % (Auto) (9.0-44.0) % Henderson % (Auto) (0.0-8.0) % Eos % (Auto) (0.0-4.0) % Baso % (Auto) (0.0-2.0) % Neut # (Auto) (1.8-7.7) th/mm3 Lymph # (Auto) (1.0-4.8) th/mm3 [place] # (Auto) (0.0-0.9) th/mm3 Eos # (Auto) (0.0-0.4) th/mm3 Baso # (Auto) (0.0-0.2) th/mm3 WBC Differential Differential Comment Sodium 136 (136-145) meq/L Potassium 3.9 (3.5-5.1) meq/L Chloride 99 (98-107) meq/L Carbon Dioxide 24.7 (21.0-32.0) meq/L Anion Gap 12 (5-15) meq/L BUN 9 (7-18) mg/dL Creatinine 0.84 (0.50-1.00) mg/dL Estimated GFR 70 L (>89) mL/min Random Glucose 94 (74-106) mg/dL Hemoglobin A1c 5.3 (4.3-6.0) % Calcium 8.6 (8.5-10.1) mg/dL Magnesium (1.5-2.5) mg/dL Total Bilirubin (0.2-1.0) mg/dL AST (15-37) U/L ALT (10-53) U/L Alkaline Phosphatase (45-117) U/L Total Protein (6.4-8.2) g/dL Albumin (3.4-5.0) g/dL Triglycerides 137 (42-150) mg/dL Cholesterol 292 H (120-200) mg/dL LDL Cholesterol, Calc 196 H (0-99) mg/dL HDL Cholesterol 68.5 H (40.0-60.0) mg/dL Cholesterol/HDL Ratio 4.26 Ratio Lipase (73-393) U/L TSH (0.358-3.740) uIU/mL Urine Color (Yellw/Straw) Urine Clarity (Clear) Urine pH (5.0-8.5) Ur Specific [place] (1.002-1.035) Urine Protein (Neg-Trace) mg/dL Urine Glucose (UA) (Negative) mg/dL Urine Ketones (Negative) mg/dL Urine Occult Blood (Negative) Urine Nitrate (Negative) Urine Bilirubin (Negative) Urine Urobilinogen (Less than 2) mg/dL Ur Leukocyte Esterase (Negative) Urine RBC (0-3) /hpf Urine WBC (0-5) /hpf Ur Squamous Epith Cells (0-5) /hpf Urine Mucus (Occasional) /lpf Micro UA Comment Ur Microscopic Review Urine Culture Comments Urine Opiates Screen (Neg) Ur Barbiturates Screen (Neg) Ur Amphetamines Screen (Neg) U Benzodiazepines Scrn (Neg) Urine Cocaine Screen (Neg) U Cannabinoids Screen (Neg) Serum Alcohol (0-5) mg/dL Imaging Data Radiologist's impression: Abdomen/Pelvis CT 05/27/18 15:53 CONCLUSION: 1. No acute abnormality. 2. Cholelithiasis. 3. Hepatic steatosis. 4. Hiatal hernia. Discharge Plan Discharge Disposition Patient Disposition: ED Admit(ED Internal Use Only) Discharge Condition Condition: Stable Discharge Order Discharge Orders: ED Use Only Admit Order (Routine); Ordered 05/27/18 Ordered By: Bhupinder Bradley Discharge Details Diagnosis: Substance induced mood disorder, Alcohol intoxication Physicians Team ED Provider: Alvin Olmos ED Midlevel Provider: Nicole Underwood Primary Care Provider: UNKNOWN, Attending Provider: Shubham Banegas Other Providers: Moo Beard Status ED Status: Left Department Discharge Information Discharge Date/Time: 05/27/18 23:10
[2018-05-27 19:49] LABS: Baso % (Auto) 0.8 % (0.0-2.0); Eos % (Auto) 0.3 % (0.0-4.0); Hematocrit 39.2 % (35.0-46.0); Hemoglobin 13.6 gm/dL (11.6-15.3); Lymph # (Auto) 2.1 th/mm3 (1.0-4.8); Lymph % (Auto) 41.9 % (9.0-44.0); Mean Corpuscular HGB Conc 34.6 % (32.0-36.0); Mean Corpuscular Hemoglobin 32.7 pg (27.0-34.0); Mean Corpuscular Volume 94.5 fL (80.0-100.0); Mean Platelet Volume 10.3 fL (7.0-11.0); Mono # (Auto) 0.3 th/mm3 (0.0-0.9); Neut # (Auto) 2.7 th/mm3 (1.8-7.7); Platelet Count 109 th/mm3 (150-450); Red Blood Count 4.15 mil/mm3 (4.00-5.30); Red Cell Distribution Width 15.4 % (11.6-17.2); White Blood Count 5.1 th/mm3 (4.0-11.0)
[2018-05-27 20:07] LABS: Albumin 4.1 g/dL (3.4-5.0); Anion Gap 14 meq/L (5-15); Aspartate Aminotransferase 114 U/L (15-37); Blood Urea Nitrogen 8 mg/dL (7-18); Calcium 8.9 mg/dL (8.5-10.1); Carbon Dioxide 23.4 meq/L (21.0-32.0); Chloride 98 meq/L (98-107); Glomerular Filtration Rate 72 mL/min (>89); Glucose,Random 75 mg/dL (74-106); Lipase 81 U/L (73-393); Potassium 4.4 meq/L (3.5-5.1); Sodium 135 meq/L (136-145)
[2018-05-27 20:17] LABS: Alanine Aminotransferase 79 U/L (10-53); Alkaline Phosphatase 139 U/L (45-117); Total Protein 8.4 g/dL (6.4-8.2)
[2018-05-27 20:24] LABS: Alcohol 135 mg/dL (0-5)
--- NOTE | 2018-05-27 21:24 | CT ---
EXAM DATE: 05/27/2018 9:17 PM EST AGE/SEX: 57 years / Female INDICATIONS: Lower abdominal pain since earlier today. CLINICAL DATA: This is the patient's initial encounter. Patient reports that signs and symptoms have been present for 1 day and indicates a pain score of 4/10. MEDICAL/SURGICAL HISTORY: None. Appendectomy. Hysterectomy. ORAL CONTRAST: No oral contrast ingested. RADIATION DOSE: 14.35 CTDI (mGy) COMPARISON: No prior exams available for comparison. TECHNIQUE: Multiple contiguous axial images were obtained through the abdomen and pelvis following b olus infusion of 98 ml Omnipaque 350 (iohexol) nonionic water-soluble contrast as a single exam dos e. No oral contrast ingested. Using automated exposure control and adjustment of the mA and/or kV ac cording to patient size, radiation dose was kept as low as reasonably achievable to obtain optimal di agnostic quality images. DICOM format image data is available electronically for review and comparis on. FINDINGS: Lower Lungs: Small hiatal hernia. The visualized lower lungs are clear. Liver: The liver has a homogeneously low density without space-occupying lesion. There is no dilation of the biliary tree. A solitary small calcified gallstone within an otherwise normal-appearing gallb ladder. Spleen: Homogeneous density without enlargement. Pancreas: Unremarkable without mass or calcification. Kidneys: Normal in size and shape. No evidence of mass or hydronephrosis. Adrenal Glands: Unremarkable. Aorta: The aorta and proximal iliac vessels are grossly unremarkable without aneurysmal dilation. Bowel/Mesentery: A few scattered colonic diverticuli without acute inflammation. The bowel loops are grossly unremarkable. The cecum and sigmoid colon have a normal configuration. Abdominal Wall: Intact. Retroperitoneum: No evidence of adenopathy in the retrocrural, para-aortic, or deep pelvic regions. Bladder: Contours are smooth. Reproductive Organs: No abnormal masses or calcifications seen. Inguinal: The inguinal region is unremarkable without evidence of adenopathy. Bony Structures: Unremarkable. CONCLUSION: 1. No acute abnormality. 2. Cholelithiasis. 3. Hepatic steatosis. 4. Hiatal hernia. Electronically signed by: Neel Lawson MD Board Certified Radiologist 05/27/2018 9:23 PM EST
[2018-05-27 23:03] LABS: Bilirubin,Urine Negative (Negative); Clarity,Urine Hazy (Clear); Color,Urine Yellow (Yellw/Straw); Glucose,Urine (UA) Negative (Negative); Leukocyte Esterase,Urine Negative (Negative); Mucus,Urine Few /lpf (Occasional); Nitrite,Urine Negative (Negative); Squamous Epithelial Cell,Urine 4 /hpf (0-5); Urobilinogen,Urine 4 or Greater mg/dL (Less than 2)
[2018-05-27 23:14] LABS: Amphetamine Screen,Urine Neg (Neg); Barbiturate Screen,Urine Neg (Neg); Cannabinoid Screen,Urine Neg (Neg); Cocaine Screen,Urine Neg (Neg)
[2018-05-27 23:39] LABS: Opiate Screen,Urine Neg (Neg)
[2018-05-28] MEDS ORDERED: Acetaminophen 325 MG Tablet PO PRN (00:03)
[2018-05-28] MEDS ORDERED: Aluminum/Magnesium/Simethacone Susp 30 ML UDC PO PRN (00:03)
[2018-05-28] MEDS: LORazepam 1 MG Tablet PO PRN ×2 (00:24→06:34)
[2018-05-28 07:54] LABS: Calcium 8.6 mg/dL (8.5-10.1); Carbon Dioxide 24.7 meq/L (21.0-32.0); Potassium 3.9 meq/L (3.5-5.1)
[2018-05-28 07:59] LABS: Chol/HDL Ratio 4.26 Ratio; HDL Cholesterol 68.5 mg/dL (40.0-60.0)
--- NOTE | 2018-05-28 15:15 | P.HPPSY ---
Provisional Diagnosis Admission Date: May 27, 2018 21:59 Alcohol induced mood disorderdepression Competence Certification of Person's Competence To Provide Express and Informed Consent I have personally examined Hannah Chaudhry, a person being served at [facility] on, May 28, 2018 1451. Express and informed consent means consent voluntarily given in writing, by a competent person, after sufficient explanation and disclosure of the subject matter involved to enable the person to make a knowing and willful decision without any element of force, fraud, deceit, duress, or other form of constraint or coercion. This person is 18 years of age or older, is not now known to be incompetent to consent to treatment with a guardian advocate, and does not have a health care surrogate or proxy currently making medical treatment decisions. I have found this person to be one of the following: [] Competent to provide express and informed consent, as defined above, for voluntary admission to this facility and is competent to provide express and informed consent for treatment. He/she has the consistent capacity to make well reasoned, willful, and knowing decisions concerning his or her medical or mental health treatment. The person fully and consistently understands the purpose of the admission for examination/placement and is fully capable of personally exercising all rights assured [place] [] Incompetent to provide express and informed consent to voluntary admission, and this is incompetent to provide express and informed consent to treatment. The person must be transferred to involuntary status and a petition for a guardian advocate filed with the Circuit Court. [] Refusing to provide express and informed consent to voluntary admission but is competent to provide express and informed consent for treatment. The person must be discharged or transferred to involuntary status. Form shall be completed within 24 hours of a person's arrival at the receiving facility and filed in the clinical record of each person: 1. Admitted on a voluntary basis 2. Permitted to provide express and informed consent to his/her own treatment 3. Allowed to transfer from involuntary to voluntary status 4. Prior to permitting a person to consent to his or her own treatment after having been previously found incompetent to consent to treatment. History of Present Illness Capacity: Has capacity Chief Complaint: Alcohol induced depression and unresolved grief History of Present Illness: May 28, 2018 HPI Patient is a 57-year old her 4 years ago. Patient has had no grief counseling and continues depressed in spite of went with Lexapro initiated by her primary care physician. Patient has been on Lexapro for least a year but has been drinking on a daily basis consuming a quart of tequila daily. In the spring of this year the patient was admitted for a month to [facility] in [facility]. Less than a week later she was again drinking. Unclear what outpatient treatment was prescribed, but the patient did not is attending AA meetings. She complains that the treatment at the rehab was made difficult for her since her problems primarily alcohol and the other residents had little interest in improvement and more generally into heavier substance abuse than the patient. The patient presents as a very helpless individual with little in the way of energy and motivation for treatment until recently. She lives alone in a small apartment and has no significant family. She changed her phone and told her son never to call again because all he ever wanted with his money and had no interest in any assistance to her. She has family in [place] but describes both her mother and father and sibs as criminals. Since her 's 4 years ago the patient has treated her depression with alcohol. Apparently there is been no attempt to refer her to grief treatment either by group or individual treatment. Past psychiatric history significant for alcohol abuse and for recent medical problems with vomiting associated with consumption of alcohol. She claims that when she does not drink she does not have the cramping and dyspepsia. - Inpatient Certification I certify that the inpatient services were ordered in accordance with Medicare regulations governing the order. This includes certification that hospital inpatient services are reasonable and necessary and in the case of services not specified as inpatient-only under 42 CFR 419.22(n), that they are appropriately provided as inpatient services in accordance to with the 2-midnight benchmark under 43 CFR 412.3(e) I certify that inpatient psychiatric hospital services are medically necessary. Evaluation and treatment and/or diagnostic testing are expected to improve the patient's condition. The patient needs on a daily basis, active treatment furnished directly by or requiring the supervision of inpatient psychiatric facility personnel. Estimated Total Length of Stay (Days): 5 Plans for Post Hospital Care: Not yet determined Review of Systems Review of systems discussed with the patient and confirmed the medical exam questions on the review of systems. PMFSH - History History Provided By: Patient - Medical / Surgical Hx Neg / Unobtainable Medical Problems Denied: Yes (Except when drinking the patient has been experiencing vomiting and abdominal cramps) - Medical History Medical History: Medical History (Last Updated 05/27/18 @ 15:39 by Talya Curtis) Depression History of hysterectomy - Surgical History Surgical History: Surgical History (Last Updated 05/27/18 @ 15:39 by Talya Curtis) History of appendectomy History of tonsillectomy - Tobacco History Second Hand Smoke Exposure: No Smoking Status: Never smoker - Alcohol History How Often Do You Have a Drink Containing Alcohol: 4 or more times a week - Substance Use History Substance History: Active Abuse - Substance Use Type Alcohol Status: Active Route Used: By Mouth Reason for Use: Sleep Comment: DAILY - Travel History Recent Travel in the [place] Within the Last 8 Weeks: No Recent Travel Out of the Country Within the Last 8 Weeks: No - Immunization History Tetanus Immunization: Unsure Quality Measures - Psychiatric History Psychological trauma history: Both parents sibs and son described by the patient as criminal - Patient Strengths Patient's strengths (minimum of 2): Patient is of average intelligence and articulate Medications and Allergies Active Medications: Active Medications Acetaminophen (Tylenol) 650 mg PO Q4H PRN PRN Reason: Pain 1-5 or Temp >101F Al Hydrox/Mg Hydrox/Simethicone (Mag-Al Plus Susp Liq) 30 ml PO Q6H PRN PRN Reason: DYSPEPSIA Al Hydroxide/Mg Hydroxide (Milk Of Magnesia Liq) 30 ml PO DAILY PRN PRN Reason: Mild Constipation Diphenhydramine HCl (Benadryl) 50 mg PO HS PRN PRN Reason: INSOMNIA Diphenhydramine HCl (Benadryl Inj) 50 mg IM HS PRN PRN Reason: INSOMNIA Flumazenil (Romazecon Inj) 0.2 mg IV.PUSH Q1M PRN PRN Reason: OVERSEDATION Hydroxyzine HCl (Atarax) 50 mg PO Q6H PRN PRN Reason: ANXIETY Lorazepam (Ativan) 1 mg PO Q4H PRN PRN Reason: for CIWA 8-10 Last Admin: 05/28/18 06:34 Dose: 1 mg Lorazepam (Ativan) 2 mg PO Q2H PRN PRN Reason: for CIWA 11-14 Lorazepam (Ativan Inj) 2 mg IV.PUSH Q2H PRN PRN Reason: for CIWA 11-14 Lorazepam (Ativan Inj) 2 mg IV.PUSH Q1H PRN PRN Reason: for CIWA 15-20 Lorazepam (Ativan Inj) 1 mg IV.PUSH Q4H PRN PRN Reason: for CIWA 8-10 Lorazepam (Ativan Inj) 2 mg IV.PUSH Q15M PRN PRN Reason: for CIWA > 20 Nicotine (Habitrol 21 Mg Patch.24 Hr) 1 patch T-DERMAL DAILY KALPANA Last Admin: 05/28/18 09:46 Dose: Not Given Patch Removal (Remove Old Patch) 1 each T-DERMAL HS KALPANA Sodium Chloride (Ns Flush) 2 ml IV.FLUSH PRN PRN PRN Reason: FLUSH AFTER USING IV ACCESS Last Admin: 05/27/18 19:21 Dose: 2 ml Allergies Allergy/AdvReac Type Severity Reaction Status Date / Time Penicillins Allergy Unknown Anaphylaxis Verified 05/27/18 15:35 amoxicillin Allergy Anaphylaxis Verified 05/27/18 15:58 codeine Allergy Anaphylaxis Verified 05/27/18 15:58 Home Medications Medication Instructions Recorded Confirmed Type Unable to Obtain Home Meds 05/27/18 05/27/18 History Results - Labs CBC & Chem 7: 05/27/18 19:20 05/28/18 06:38 Labs: Laboratory Results - last 24 hr 05/27/18 05/27/18 05/27/18 19:20 19:20 19:20 WBC 5.1 RBC 4.15 Hgb 13.6 Hct 39.2 MCV 94.5 MCH 32.7 MCHC 34.6 RDW 15.4 Plt Count 109 L MPV 10.3 Neut % (Auto) 52.0 Lymph % (Auto) 41.9 [place] % (Auto) 5.0 Eos % (Auto) 0.3 Baso % (Auto) 0.8 Neut # (Auto) 2.7 Lymph # (Auto) 2.1 [place] # (Auto) 0.3 Eos # (Auto) 0.0 Baso # (Auto) 0.0 WBC Differential . Differential Comment Auto diff final Sodium 135 L Potassium 4.4 Chloride 98 Carbon Dioxide 23.4 Anion Gap 14 BUN 8 Creatinine 0.82 Estimated GFR 72 L Random Glucose 75 Calcium 8.9 Magnesium 2.0 Total Bilirubin 0.9 AST 114 H ALT 79 H Alkaline Phosphatase 139 H Total Protein 8.4 H Albumin 4.1 Triglycerides Cholesterol LDL Cholesterol, Calc HDL Cholesterol Cholesterol/HDL Ratio Lipase 81 TSH 2.040 Cancelled Urine Color Urine Clarity Urine pH Ur Specific [place] Urine Protein Urine Glucose (UA) Urine Ketones Urine Occult Blood Urine Nitrate Urine Bilirubin Urine Urobilinogen Ur Leukocyte Esterase Urine RBC Urine WBC Ur Squamous Epith Cells Urine Mucus Micro UA Comment Ur Microscopic Review Urine Culture Comments Urine Opiates Screen Ur Barbiturates Screen Ur Amphetamines Screen U Benzodiazepines Scrn Urine Cocaine Screen U Cannabinoids Screen Serum Alcohol 135 H 05/27/18 05/27/18 05/27/18 19:20 22:23 22:23 WBC RBC Hgb Hct MCV MCH MCHC RDW Plt Count MPV Neut % (Auto) Lymph % (Auto) [place] % (Auto) Eos % (Auto) Baso % (Auto) Neut # (Auto) Lymph # (Auto) [place] # (Auto) Eos # (Auto) Baso # (Auto) WBC Differential Differential Comment Sodium Potassium Chloride Carbon Dioxide Anion Gap BUN Creatinine Estimated GFR Random Glucose Calcium Magnesium Total Bilirubin AST ALT Alkaline Phosphatase Total Protein Albumin Triglycerides Cholesterol LDL Cholesterol, Calc HDL Cholesterol Cholesterol/HDL Ratio Lipase TSH Urine Color Yellow Urine Clarity Hazy H Urine pH 6.0 Ur Specific [place] Greater than 1.060 H Urine Protein 30 H Urine Glucose (UA) Negative Urine Ketones 20 Urine Occult Blood Negative Urine Nitrate Negative Urine Bilirubin Negative Urine Urobilinogen 4 or greater Ur Leukocyte Esterase Negative Urine RBC 2 Urine WBC Less than 1 Ur Squamous Epith Cells 4 Urine Mucus Few H Micro UA Comment Culture not ind Ur Microscopic Review Not Reportable Urine Culture Comments Culture not ind Urine Opiates Screen Neg Ur Barbiturates Screen Neg Ur Amphetamines Screen Neg U Benzodiazepines Scrn Neg Urine Cocaine Screen Neg U Cannabinoids Screen Neg Serum Alcohol Cancelled 05/28/18 06:38 WBC RBC Hgb Hct MCV MCH MCHC RDW Plt Count MPV Neut % (Auto) Lymph % (Auto) [place] % (Auto) Eos % (Auto) Baso % (Auto) Neut # (Auto) Lymph # (Auto) [place] # (Auto) Eos # (Auto) Baso # (Auto) WBC Differential Differential Comment Sodium 136 Potassium 3.9 Chloride 99 Carbon Dioxide 24.7 Anion Gap 12 BUN 9 Creatinine 0.84 Estimated GFR 70 L Random Glucose 94 Calcium 8.6 Magnesium Total Bilirubin AST ALT Alkaline Phosphatase Total Protein Albumin Triglycerides 137 Cholesterol 292 H LDL Cholesterol, Calc 196 H HDL Cholesterol 68.5 H Cholesterol/HDL Ratio 4.26 Lipase TSH Urine Color Urine Clarity Urine pH Ur Specific [place] Urine Protein Urine Glucose (UA) Urine Ketones Urine Occult Blood Urine Nitrate Urine Bilirubin Urine Urobilinogen Ur Leukocyte Esterase Urine RBC Urine WBC Ur Squamous Epith Cells Urine Mucus Micro UA Comment Ur Microscopic Review Urine Culture Comments Urine Opiates Screen Ur Barbiturates Screen Ur Amphetamines Screen U Benzodiazepines Scrn Urine Cocaine Screen U Cannabinoids Screen Serum Alcohol - Imaging Impressions Abdomen/Pelvis CT 05/27/18 15:53 CONCLUSION: 1. No acute abnormality. 2. Cholelithiasis. 3. Hepatic steatosis. 4. Hiatal hernia. Exam Vital signs: Vital Signs 05/27/18 15:37 05/28/18 00:06 05/28/18 06:28 Temperature 97.7 F 97.7 F 98.4 F Pulse Rate 103 H 63 94 H Respiratory Rate 22 18 18 Blood Pressure 138/84 108/65 148/82 H Pulse Oximetry 97 97 95 Intake & Output 05/27/18 05/28/18 05/28/18 18:59 06:59 18:59 Intake Total 1000 / 1000 Balance 1000 / 1000 Weight 90.718 kg 88.1 kg Intake: IV 1000 / 1000 Other: Weight On Admission 88.1 kg Mental Status Examination Appearance: Appropriate Consciousness: Alert Orientation: x4 Motor Activity: Normal gait Speech: Unremarkable, Slow Language: Adequate Fund of Knowledge: Adequate Attention and Concentration: Adequate Memory: Unremarkable Mood: Sad Affect: Sad, Blunt Thought Process & Associations: Intact Thought Content: Appropriate Hallucination Type: None Delusion Type: None Insight: Poor Judgment: Poor (Very low energy) Assessment and Plan - Plan Plan: Estimated LOS: [] days Patient was advised that SSRIs do not work with alcohol. We will restart her Lexapro 20 mg daily with the understanding that likelihood benefit will not occur for at least 6 weeks and will be difficult to distinguish between the improvement secondary to sobriety and the use of the medication. The patient will be observed and evaluated for the extent of her ability to help herself and follow-up with outpatient grief therapy as well as following and sponsored recovery program with 90 days of attendance and follow-up with [facility]. There is hope that the patient can benefit from group therapy while here so that she may understand its value and somehow gained the energy on discharge to attend both AA meetings and grief counseling. Home health referral may also be of benefit. Justification for Continued Inpatient Stay: Patient has a serious depression and the possibility to early signs of withdrawal with sweating and vomiting. Request Healthcare Surrogate/Guardian Advocate?: No
[2018-05-28 15:49] LABS: Hemoglobin A1c 5.3 % (4.3-6.0)
[2018-05-28] MEDS: Aluminum/Magnesium/Simethacone Susp 30 ML UDC PO SCH (17:24)
[2018-05-29 08:22] LABS: Amylase 33 U/L (25-115); Lipase 102 U/L (73-393)
[2018-05-29] MEDS: Aluminum/Magnesium/Simethacone Susp 30 ML UDC PO SCH (09:17)
--- NOTE | 2018-05-29 11:30 | P.PNPSY ---
Subjective Chief Complaint: Alcohol induced depression and unresolved grief Remarks: May 29, 2018 Subjective: Patient is feeling much better today the chart was reviewed and patient seen with the nursing staff after consultation with the nursing staff and the patient it was determined that the patient could sign voluntary. The patient feels could be ready to go home soon. Medical workup regarding her complaints of GI problem is in place and amylase was ordered along with medical consult. Patient's lipase was within the normal limits (right ear). The patient has been able to keep down food and has had no episodes of vomiting. It seems very likely that the patient's complaint of GI problems associated with with her drinking i.e. abdominal pain and vomiting is associated with her intake of a quart of tequila daily. The patient is hopeful of discharge tomorrow. Discharge planning should include referral to [facility]. There is also a need for follow-up and grief counseling. Mental Status Examination Appearance: Appropriate Consciousness: Alert Orientation: x4 Motor Activity: Normal gait Speech: Unremarkable, Slow Language: Adequate Fund of Knowledge: Adequate Attention and Concentration: Adequate Memory: Unremarkable Mood: Sad Affect: Sad, Blunt Thought Process & Associations: Intact Thought Content: Appropriate Hallucination Type: None Delusion Type: None Insight: Poor Judgment: Impulsive (Very low energy) Assessment and Plan - Plan Plan: Estimated LOS: [3] days May 28 and 2017. Please note it it regarding delay in starting Lexapro. Patient was advised that SSRIs do not work with alcohol. We will restart her Lexapro 20 mg daily only after she has demonstrated abstinence from alcohol for at least 2 weeks with the understanding that likelihood of benefit will not occur for at least 6 weeks and will be difficult to distinguish between the improvement secondary to sobriety and the use of the medication. The patient will be observed and evaluated for the extent of her ability to help herself and follow-up with outpatient grief therapy as well as following and AA sponsored recovery program with 90 days of attendance and follow-up with [facility]. There is hope that the patient can benefit from group therapy while here so that she may understand its value and somehow gained the energy on discharge to attend both AA meetings and grief counseling. Home health referral may also be of benefit. Justification for Continued Inpatient Stay: Patient is receiving some counseling and groups regarding her grieving for 4 years deal with her grief without consumption of large amounts of alcohol. The alcohol addiction is current primary issue and treatment of that should precede any psychopharmacologic treatment. Patient has shown some improvement during the day first 24 hours of her admission but still feels a bit unsteady and is likely to decompensate with a rather rigid planning for follow-up. It is noted that the patient resumed her alcohol addiction within a week of a 30-day program discharge. Request Healthcare Surrogate/Guardian Advocate?: No
--- NOTE | 2018-05-29 12:25 | P.DIET ---
Nutritional Evaluation Type of nutrition evaluation: initial Nutrition screening: [facility] [place] comments: 05/28/18 [facility] Nutritional Consult Subjective Subjective Comments: Pt visited in the dayroom during lunch today. Pt says she was having problems w / Nausea and Vomiting; however, pt says she is currently tolerating her diet. Spoke w/LARRY Epstein and she reports pt is no longer having Nausea and Vomiting and is tolerating po diet. Objective - Diagnosis Depressive Disorder NOS, Alcoholism - Objective % IBW: 169 Body Weight Used for Calculations: IBW (52.3 kg) Energy Needs - Lower Range (kCal/kg): 25 Energy Needs - Upper Range (kCal/kg): 30 Lower Limit kCal/kg (kCals): 1,307 Upper Limit kCal/kg (kCals): 1,569 Lower Limit Protein Factor (Grams per Kg): 1.1 Upper Limit Protein Factor (Grams per Kg): 1.4 Lower Protein Needs (Protein): 58 Upper Protein Needs (Protein): 73 Dietitian Reviewed in Medical Record: Current diet, Curent medications, Intake & Output, Labs, Medical history Diet Order: Soft Objective Comments: PMH includes: Depression, Hysterectomy, Alcohol use CT Abd/Pelvis reveals cholelithiasis A1C 5.3 Assessment Assessment: Pt is at nutritional risk r/t diagnosis and recent N & V. Pt is currently tolerating diet w/Adequate po intake 75% and greater for meals. Agree w/Soft diet in setting of alcoholism. Rec a MVM QD. Assess need for an oral nutritional supplement as appropriate. Dietitian will follow. Recommendations: 1. Agree w/Soft diet in setting of alcoholism 2. Rec a MVM QD 3. Assess need for an oral nutritional supplement as appropriate 4. Dietitian will follow Dietitian to Monitor: Lab values, Intake & Output, Diet tolerance, Weight change , PO Intake, Medical course
--- NOTE | 2018-05-29 17:35 | P.CON ---
History of Present Illness Service: [facility] Consult date: 05/29/18 Requesting Physician: Shubham Banegas Reason for Consult: nausea/vomiting Primary Care Provider: UNKNOWN Chief Complaint: nausea/vomiting History of Present Illness: 57-year-old female with history of alcohol abuse, depression, admitted to inpatient psychiatry for ongoing depression, self medicating with alcohol. Hospitalist consulted for medical management of nausea/vomiting, concern for esophageal varices. Patient is seen ambulating in the day room. She states her nausea and vomiting has resolved. She states she was sick due to her alcohol use. She states she was drinking significant amount of liquor daily, unable to exactly quantify. She denies any current abdominal pain, nausea/ vomiting, hematemesis, diarrhea, melena, or hematochezia. She has never been diagnosed with esophageal varices. She has never experienced any GI bleeding. She is now tolerating oral intake. She has no other medical complaints at this time including no fever/chills, chest pain, shortness of breath, or urinary complaints. Review of Systems All other systems reviewed negative except as stated in HPI PMFSH - History History Provided By: Patient - Medical History Medical History: Medical History (Last Updated 05/27/18 @ 15:39 by Talya Curtis) Depression History of hysterectomy - Surgical History Surgical History: Surgical History (Last Updated 05/27/18 @ 15:39 by Talya Curtis) History of appendectomy History of tonsillectomy - Family History Family History: Family History (Last Updated 05/29/18 @ 17:11 by Marie Alcantar) Father Alcoholism - Tobacco History Second Hand Smoke Exposure: No Smoking Status: Never smoker - Alcohol History How Often Do You Have a Drink Containing Alcohol: 4 or more times a week - Substance Use History Substance History: Active Abuse - Substance Use Type Alcohol Status: Active Route Used: By Mouth Reason for Use: Sleep Comment: DAILY - Travel History Recent Travel in the [place] Within the Last 8 Weeks: No Recent Travel Out of the Country Within the Last 8 Weeks: No - Immunization History Tetanus Immunization: Unsure Medications and Allergies Active Medications: Active Medications Acetaminophen (Tylenol) 650 mg PO Q4H PRN PRN Reason: Pain 1-5 or Temp >101F Al Hydrox/Mg Hydrox/Simethicone (Mag-Al Plus Susp Liq) 30 ml PO Q6H PRN PRN Reason: DYSPEPSIA Al Hydrox/Mg Hydrox/Simethicone (Mag-Al Plus Susp Liq) 30 ml PO AC KALPANA Last Admin: 05/29/18 09:17 Dose: Not Given Al Hydroxide/Mg Hydroxide (Milk Of Magnesia Liq) 30 ml PO DAILY PRN PRN Reason: Mild Constipation Diphenhydramine HCl (Benadryl) 50 mg PO HS PRN PRN Reason: INSOMNIA Last Admin: 05/28/18 21:11 Dose: 50 mg Diphenhydramine HCl (Benadryl Inj) 50 mg IM HS PRN PRN Reason: INSOMNIA Flumazenil (Romazecon Inj) 0.2 mg IV.PUSH Q1M PRN PRN Reason: OVERSEDATION Hydroxyzine HCl (Atarax) 50 mg PO Q6H PRN PRN Reason: ANXIETY Lorazepam (Ativan) 1 mg PO Q4H PRN PRN Reason: for CIWA 8-10 Last Admin: 05/28/18 06:34 Dose: 1 mg Lorazepam (Ativan) 2 mg PO Q2H PRN PRN Reason: for CIWA 11-14 Lorazepam (Ativan Inj) 2 mg IV.PUSH Q2H PRN PRN Reason: for CIWA 11-14 Lorazepam (Ativan Inj) 2 mg IV.PUSH Q1H PRN PRN Reason: for CIWA 15-20 Lorazepam (Ativan Inj) 1 mg IV.PUSH Q4H PRN PRN Reason: for CIWA 8-10 Lorazepam (Ativan Inj) 2 mg IV.PUSH Q15M PRN PRN Reason: for CIWA > 20 Nicotine (Habitrol 21 Mg Patch.24 Hr) 1 patch T-DERMAL DAILY [facility] Last Admin: 05/29/18 09:17 Dose: Not Given Patch Removal (Remove Old Patch) 1 each T-DERMAL HS [facility] Last Admin: 05/28/18 20:25 Dose: Not Given Sodium Chloride (Ns Flush) 2 ml IV.FLUSH PRN PRN PRN Reason: FLUSH AFTER USING IV ACCESS Last Admin: 05/27/18 19:21 Dose: 2 ml Allergies Allergy/AdvReac Type Severity Reaction Status Date / Time Penicillins Allergy Unknown Anaphylaxis Verified 05/27/18 15:35 amoxicillin Allergy Anaphylaxis Verified 05/27/18 15:58 codeine Allergy Anaphylaxis Verified 05/27/18 15:58 Home Medications Medication Instructions Recorded Confirmed Type Unable to Obtain Home Meds 05/27/18 05/27/18 History Physical Exam Vital signs: Vital Signs 05/28/18 17:51 05/29/18 06:00 Temperature 98.5 F 97.8 F Pulse Rate 91 H 91 H Respiratory Rate 17 16 Blood Pressure 143/94 H 110/62 Pulse Oximetry 93 L Narrative: GENERAL: Well-nourished, well-developed very pleasant middle-age female patient in NAD. Ambulatory. SKIN: Warm and dry. No rash. HEENT: Normocephalic. Atraumatic. Pupils equal and round. Mucous membranes pink and moist. NECK: Supple. Trachea midline. CARDIOVASCULAR: Regular rate and rhythm. No murmur appreciated. RESPIRATORY: No accessory muscle use. Clear to auscultation. Breath sounds equal bilaterally. GASTROINTESTINAL: Abdomen soft, non-tender, nondistended. Normoactive bowel sounds x4. MUSCULOSKELETAL: No obvious deformities. Extremities without clubbing, cyanosis , or edema. NEUROLOGICAL: Awake and alert. No obvious cranial nerve deficits. Moving all extremities spontaneously. Normal speech. Results - Labs CBC & Chem 7: 05/27/18 19:20 05/28/18 06:38 Labs: Laboratory Results - last 24 hr 05/28/18 05/29/18 06:38 06:29 Hemoglobin A1c 5.3 Amylase 33 Lipase 102 - Imaging Abdomen/Pelvis CT 05/27/18 15:53 CONCLUSION: 1. No acute abnormality. 2. Cholelithiasis. 3. Hepatic steatosis. 4. Hiatal hernia. Assessment and Plan - Plan 57-year-old female with history of alcohol abuse, depression, admitted to inpatient psychiatry for ongoing depression, self medicating with alcohol. Hospitalist consulted for medical management of nausea/vomiting, concern for esophageal varices. Nausea/vomiting: Acute, likely secondary to alcohol ingestion prior to arrival -CT abdomen pelvis reviewed, no acute findings, shows cholelithiasis, hepatic steatosis, and hiatal hernia -Consulted by psychiatry for concern for esophageal varices, not seen on abdominal CT, and hemoglobin stable at 13.6 -Will recheck routine labs in the morning to trend H&H and BMP -Give antiemetics as needed -Diet as tolerated -symptoms now resolved and patient tolerating oral intake Alcohol Abuse: patient admits to self medicating her depression with large amounts of liquor daily -counseled on cessation -CIWA protocol -thiamine/folate/MV Depression: acute -continue management per psychiatry DVT Prophylaxis: patient is ambulatory
[2018-05-30 06:46] LABS: Baso % (Auto) 0.6 % (0.0-2.0); Eos % (Auto) 1.1 % (0.0-4.0); Hematocrit 35.1 % (35.0-46.0); Lymph # (Auto) 1.1 th/mm3 (1.0-4.8); Lymph % (Auto) 25.7 % (9.0-44.0); Mean Corpuscular HGB Conc 34.1 % (32.0-36.0); Mean Corpuscular Hemoglobin 33.1 pg (27.0-34.0); Mean Corpuscular Volume 96.9 fL (80.0-100.0); Mean Platelet Volume 11.6 fL (7.0-11.0); Mono # (Auto) 0.3 th/mm3 (0.0-0.9); Mono % (Auto) 6.1 % (0.0-8.0); Neut # (Auto) 2.8 th/mm3 (1.8-7.7); Neut % (Auto) 66.5 % (16.0-70.0); Platelet Count 38 th/mm3 (150-450); Red Blood Count 3.62 mil/mm3 (4.00-5.30); Red Cell Distribution Width 15.5 % (11.6-17.2); White Blood Count 4.2 th/mm3 (4.0-11.0)
[2018-05-30 07:20] LABS: Albumin 3.6 g/dL (3.4-5.0); Anion Gap 7 meq/L (5-15); Aspartate Aminotransferase 80 U/L (15-37); Blood Urea Nitrogen 11 mg/dL (7-18); Calcium 8.8 mg/dL (8.5-10.1); Carbon Dioxide 31.6 meq/L (21.0-32.0); Chloride 100 meq/L (98-107); Glomerular Filtration Rate 66 mL/min (>89); Glucose,Random 117 mg/dL (74-106); Potassium 3.4 meq/L (3.5-5.1); Sodium 139 meq/L (136-145)
[2018-05-30 07:21] LABS: Alanine Aminotransferase 61 U/L (10-53)
[2018-05-30 07:23] LABS: Alkaline Phosphatase 154 U/L (45-117)
[2018-05-30] MEDS: Aluminum/Magnesium/Simethacone Susp 30 ML UDC PO SCH ×3 (08:30→12:35)
[2018-05-30] MEDS ORDERED: Folic Acid 1 MG Tablet PO SCH (09:00)
[2018-05-30] MEDS ORDERED: Multivitamin/Minerals Therapeutic Tablet PO SCH (09:00)
--- NOTE | 2018-05-30 14:17 | P.PNADD ---
Addendum to Inpatient Note Reason for Addendum: Additional Documentation Additional information: Received call from psychiatry for clearance for discharge. The patient's symptoms have resolved and she is tolerating oral intake. Labs reviewed- noted thrombocytopenia, hypokalemia, transaminitis, and hyperlipidemia. Will replace potassium with po KCl prior to discharge. Unable to start statin at this time with elevated LFTs which are likely due to alcohol use. Thrombocytopenia also likely secondary to alcohol use, and can be monitored as outpatient. No reported signs of bleeding. Avoid antiplatelets. Patient advised to follow up with PCP to monitor labs. No acute medical concerns to warrant inpatient treatment. The patient is medically cleared for discharge at this time.
--- NOTE | 2018-05-30 14:25 | P.DSPSY ---
Psychiatry Discharge Summary Inpatient Psychiatric care?: Yes Advance Directives: No Mental Health Advance Directive: No Health Care Proxy: No - Admission Admission Date: May 27, 2018 21:59 - Admission Diagnosis (1) Adjustment disorder with depressed mood Code(s): F43.21 - Adjustment disorder with depressed mood Brief History: May 28, 2018 HPI Patient is a 57-year old her 4 years ago. Patient has had no grief counseling and continues depressed in spite of went with Lexapro initiated by her primary care physician. Patient has been on Lexapro for least a year but has been drinking on a daily basis consuming a quart of tequila daily. In the spring of this year the patient was admitted for a month to [facility] in [facility]. Less than a week later she was again drinking. Unclear what outpatient treatment was prescribed, but the patient did not is attending AA meetings. She complains that the treatment at the rehab was made difficult for her since her problems primarily alcohol and the other residents had little interest in improvement and more generally into heavier substance abuse than the patient. The patient presents as a very helpless individual with little in the way of energy and motivation for treatment until recently. She lives alone in a small apartment and has no significant family. She changed her phone and told her son never to call again because all he ever wanted with his money and had no interest in any assistance to her. She has family in [place] but describes both her mother and father and sibs as criminals. Since her 's 4 years ago the patient has treated her depression with alcohol. Apparently there is been no attempt to refer her to grief treatment either by group or individual treatment. Past psychiatric history significant for alcohol abuse and for recent medical problems with vomiting associated with consumption of alcohol. She claims that when she does not drink she does not have the cramping and dyspepsia. Tobacco Use In Past 30 Days: No How Often Do You Have a Drink Containing Alcohol: 4 or more times a week Hospital Course: Initial assessment and plan: Estimated LOS is 3 days, May [id number]. Please note it it regarding delay in starting Lexapro. Patient was advised that SSRIs do not work with alcohol. We will restart her Lexapro 20 mg daily only after she has demonstrated abstinence from alcohol for at least 2 weeks with the understanding that likelihood of benefit will not occur for at least 6 weeks and will be difficult to distinguish between the improvement secondary to sobriety and the use of the medication. The patient will be observed and evaluated for the extent of her ability to help herself and follow-up with outpatient grief therapy as well as following and sponsored recovery program with 90 days of attendance and follow-up with Vernon Suarez. There is hope that the patient can benefit from group therapy while here so that she may understand its value and somehow gained the energy on discharge to attend both AA meetings and grief counseling. Home health referral may also be of benefit. Patient was seen and examined on the unit today by psychiatry and also visited by counselor. There was a good response to treatment noted by nursing and provider observations, and the patient reported improvements in mood, anxiety, and there was no evidence of any suicidality or homicidality at time of discharge. Attempts to secure psychiatric follow-up were made by counselor but patient declines and insists that she will follow-up with her primary care physician for medical management and AA for substance use treatment. I have counseled the patient to abstain from substances of abuse including alcohol and have counseled patient to return to the psychiatric emergency room for any concerning symptoms as part of a general safety plan. The patient's screening labs indicated low potassium as well as a low platelet level. Hospitalist who had been consulted on the case recommended potassium supplements and a follow- up with her primary care physician to address the low platelets as an outpatient. - Discharge Discharge Date: 05/30/18 - Discharge Diagnosis (1) Adjustment disorder with depressed mood Code(s): F43.21 - Adjustment disorder with depressed mood Status: Acute Discharge Disposition: Home - Discharge Instructions Discharge Diet: Regular Diet - Discharge Time > 30 minutes Mental Status Examination Appearance: Appropriate Consciousness: Alert Orientation: x4 Motor Activity: Normal gait Speech: Unremarkable Language: Adequate Fund of Knowledge: Adequate Attention and Concentration: Adequate Memory: Unremarkable Mood: Anxious Affect: Appropriate Thought Process & Associations: Intact Thought Content: Appropriate Hallucination Type: None Delusion Type: None Suicidal Ideation: No Suicidal Plan: No Suicidal Intention: No Homicidal Ideation: No Homicidal Plan: No Homicidal Intention: No Insight: Fair Judgment: Impulsive Discharge/Advance Care Plan - Results Vital Signs: Last Vital Signs Temp 98.7 F 05/30/18 06:00 Pulse 79 05/30/18 06:00 Resp 16 05/30/18 06:00 BP 105/60 05/30/18 06:00 Pulse Ox 94 L 05/30/18 06:00 Lab Results: Abnormal Lab Results 05/30/18 05/30/18 05:48 05:48 WBC 4.2 RBC 3.62 L Hgb 12.0 Hct 35.1 MCV 96.9 MCH 33.1 MCHC 34.1 RDW 15.5 Plt Count 38 L D MPV 11.6 H Prelim Diff (Auto) Slide review pending Neut % (Auto) 66.5 Lymph % (Auto) 25.7 [place] % (Auto) 6.1 Eos % (Auto) 1.1 Baso % (Auto) 0.6 Neut # (Auto) 2.8 Lymph # (Auto) 1.1 [place] # (Auto) 0.3 Eos # (Auto) 0.0 Baso # (Auto) 0.0 WBC Differential . Diff Scan Auto diff confirmed Differential Comment . Platelet Estimate Low L Platelet Morphology Enlarged H Sodium 139 Potassium 3.4 L Chloride 100 Carbon Dioxide 31.6 Anion Gap 7 BUN 11 Creatinine 0.88 Estimated GFR 66 L Random Glucose 117 H Calcium 8.8 Total Bilirubin 1.0 AST 80 H ALT 61 H Alkaline Phosphatase 154 H Total Protein 7.0 D Albumin 3.6 Laboratory Results Hemoglobin A1c 5.3 % (4.3-6.0) 05/28/18 06:38 Triglycerides 137 mg/dL (42-150) 05/28/18 06:38 Cholesterol 292 mg/dL (120-200) H 05/28/18 06:38 LDL Cholesterol, Calc 196 mg/dL (0-99) H 05/28/18 06:38 HDL Cholesterol 68.5 mg/dL (40.0-60.0) H 05/28/18 06:38 TSH 2.040 uIU/mL (0.358-3.740) 05/27/18 19:20 Urine Culture Comments Culture not ind 05/27/18 22:23 Summary of Procedures: None ordered Imaging: ITS Impressions Abdomen/Pelvis CT 05/27/18 15:53 CONCLUSION: 1. No acute abnormality. 2. Cholelithiasis. 3. Hepatic steatosis. 4. Hiatal hernia. Pending Results: None - Medications Number of antipsychotic medications at discharge: 0 - Discharge Care Plan Goals to Promote Your Health: * To prevent worsening of your condition and complications * To maintain your health at the optimal level Directions to Meet Your Goals: Take your medications as prescribed Follow your dietary instruction Follow activity as directed Keep your appointments as scheduled Take your immunizations and boosters as scheduled If your symptoms worsen call your PCP, if no PCP go to Urgent Care Center or Emergency Room For 30/12 questions related to your inpatient stay or results of tests pending at discharge, please contact Dr. Carlitos Narayan MD at Smoking is Dangerous to Your Health. Avoid second hand smoking
== END 2018-05-30 15:30 | disposition home or self-care (01) ==
LOC: NEPD 15:21 → NEDA 21:59 → H260 23:10
PROVIDERS: ADMIT Psychiatry & Neurology Child & Adolescent Psychiatry; ATTEND Psychiatry & Neurology Child & Adolescent Psychiatry